=== PATIENT | female | born 1930 | race Caucasian/White ===

== ENCOUNTER → 2017-02-02 | Outpatient (CLI) | payer OTHER ==
[~2017-02-02] MED LIST: AMLO10TA2 PO; ATOR40TA PO; FURO20TA3 PO; HYDR25TA6 PO; LEVO100T5 PO; LOSA100T6 PO; POTA20TA89 PO; SERT100T5 PO
== END | disposition home or self-care (01) ==
LOC: CFH 13:43
PROVIDERS: ATTEND Internal Medicine Nephrology
DX: I12.9 Hypertensive chronic kidney disease with stage 1 through stage 4 chronic kidney disease, or unspecified chronic kidney disease (principal); N18.4 Chronic kidney disease, stage 4 (severe); E78.5 Hyperlipidemia, unspecified; M79.7 Fibromyalgia; G89.4 Chronic pain syndrome; E03.9 Hypothyroidism, unspecified; Z86.39 Personal history of other endocrine, nutritional and metabolic disease; Z85.038 Personal history of other malignant neoplasm of large intestine
CPT/HCPCS: 76770

== ENCOUNTER 2017-11-27 23:52 | Inpatient (IN) | payer OTHER ==
[~2017-11-27] VITALS: Ht 160 cm; Wt 102.3 kg
[2017-11-28] MEDS ORDERED: LIDOCAINE-MPF 1%, 5ML ONE (00:15)
[2017-11-28] MEDS ORDERED: POLYETHYLENE GLYCOL 17 GM PACKET PO PRN (00:30)
[2017-11-28] MEDS ORDERED: ONDANSETRON ODT 4 MG PO PRN (00:30)
[2017-11-28] MEDS ORDERED: BISACODYL 10 MG SUPP PR PRN (00:30)
[2017-11-28] MEDS ORDERED: LIDOCAINE-MPF 1%, 5ML INFIL ONE (00:30)
[2017-11-28 00:51] LABS: BASOPHILS # (AUTO) 0.03 x10^3/uL (0-0.1); BASOPHILS % (AUTO) 0 % (0-1); EOSINOPHILS # (AUTO) 0.09 x10^3/uL (0-0.4); EOSINOPHILS % (AUTO) 1 % (1-7); LYMPHOCYTES # (AUTO) 1.19 x10^3/uL (1-3.4); LYMPHOCYTES % (AUTO) 13 % (22-44); MD NO; MEAN CORPUSCULAR HEMOGLOBIN 32.5 pg (27.0-34.8); MEAN CORPUSCULAR HGB CONC 34.1 g/dL (32.4-35.8); MEAN CORPUSCULAR VOLUME 95.2 fL (80-100); MEAN PLATELET VOLUME 8.7 fL (7.4-10.4); MONOCYTES % (AUTO) 6 % (2-9); NEUTROPHILS # (AUTO) 7.29 x10^3/uL (1.8-6.8); NEUTROPHILS % (AUTO) 80 % (42-75); PLATELET COUNT 201 x10^3/uL (130-400); RED BLOOD COUNT 4.68 x10^6/uL (3.82-5.3); RED CELL DISTRIBUTION WIDTH 14.7 % (9.6-15.2)
[2017-11-28 01:00] LABS: INTERNATIONAL NORMALIZED RATIO 1.01 (0.93-1.1); PROTHROMBIN TIME 10.4 Seconds (9.6-11.5)
[2017-11-28 01:02] LABS: ALANINE AMINOTRANSFERASE 20 U/L (12-78); ALBUMIN 3.5 g/dL (3.4-5.0); ANION GAP 12 mmol/L (5-15); CALCIUM 8.4 mg/dL (8.5-10.1); CHLORIDE 102 mmol/L (98-107); CREATININE 2.13 mg/dL (0.55-1.02)
[2017-11-28 01:08] LABS: ALKALINE PHOSPHATASE 75 U/L (45-117); BILIRUBIN,TOTAL 0.4 mg/dL (0.2-1.0); TOTAL PROTEIN 7.6 g/dL (6.4-8.2)
[2017-11-28] MEDS ORDERED: L.E.T SOLUTION TP ONE ×2 (01:17→01:30)
[2017-11-28 01:20] LABS: TROPONIN I < 0.015 ng/mL (0.000-0.045)
[2017-11-28] MEDS ORDERED: MORPHINE SULFATE 4 MG/ML, 1ML IVPush PRN (02:00)
[2017-11-28] MEDS ORDERED: SODIUM CHLORIDE 0.9% 1,000ML IVBOLUS ONE (02:00)
[2017-11-28] MEDS ORDERED: SODIUM CHLORIDE FLUSH 10ML SYR IVF ONE ×2 (02:00)
[2017-11-28] MEDS ORDERED: MORPHINE SULFATE 4 MG/ML, 1ML ONE (02:07)
[2017-11-28] MEDS ORDERED: ONDANSETRON ODT 4 MG ONE (02:07)
[2017-11-28 03:20] VITALS: BP 129/71
[2017-11-28 03:27] VITALS: BP 129/71
[2017-11-28] MEDS: SODIUM CHLORIDE 0.9% 1,000 ML IV SCH ×2 (04:30→18:37)
[2017-11-28] MEDS: KETOROLAC 30 MG/1 ML IVPush PRN ×2 (05:58→07:27)
[2017-11-28] MEDS ORDERED: KETOROLAC 30 MG/1 ML IVPush SCH (06:00)
[2017-11-28 07:20] LABS: BASOPHILS # (AUTO) 0.02 x10^3/uL (0-0.1); BASOPHILS % (AUTO) 0 % (0-1); EOSINOPHILS # (AUTO) 0.13 x10^3/uL (0-0.4); EOSINOPHILS % (AUTO) 2 % (1-7); LYMPHOCYTES # (AUTO) 1.52 x10^3/uL (1-3.4); LYMPHOCYTES % (AUTO) 18 % (22-44); MD NO; MEAN CORPUSCULAR HEMOGLOBIN 31.9 pg (27.0-34.8); MEAN CORPUSCULAR HGB CONC 33.8 g/dL (32.4-35.8); MEAN CORPUSCULAR VOLUME 94.5 fL (80-100); MEAN PLATELET VOLUME 8.9 fL (7.4-10.4); MONOCYTES # (AUTO) 0.61 x10^3/uL (0.2-0.8); MONOCYTES % (AUTO) 7 % (2-9); NEUTROPHILS # (AUTO) 6.07 x10^3/uL (1.8-6.8); NEUTROPHILS % (AUTO) 73 % (42-75); PLATELET COUNT 192 x10^3/uL (130-400); RED BLOOD COUNT 4.62 x10^6/uL (3.82-5.3); RED CELL DISTRIBUTION WIDTH 14.8 % (9.6-15.2)
[2017-11-28 07:28] LABS: ALANINE AMINOTRANSFERASE 21 U/L (12-78); ALBUMIN 3.5 g/dL (3.4-5.0); ANION GAP 10 mmol/L (5-15); CALCIUM 8.6 mg/dL (8.5-10.1); CHLORIDE 102 mmol/L (98-107); CREATININE 1.84 mg/dL (0.55-1.02)
[2017-11-28 07:32] LABS: ALKALINE PHOSPHATASE 69 U/L (45-117); BILIRUBIN,TOTAL 0.5 mg/dL (0.2-1.0); TOTAL PROTEIN 7.6 g/dL (6.4-8.2); TROPONIN I < 0.015 ng/mL (0.000-0.045)
[2017-11-28 08:21] VITALS: BP 98/57
[2017-11-28] MEDS: HYDROCHLOROTHIAZIDE 25 MG TABLET PO SCH (09:00)
[2017-11-28] MEDS ORDERED: LOSARTAN 50MG TABLET PO SCH (09:00)
[2017-11-28] MEDS: AMLODIPINE 5 MG TABLET PO SCH (09:00)
[2017-11-28] MEDS: FUROSEMIDE 20 MG TABLET PO SCH ×2 (09:00→20:40)
[2017-11-28 12:06] LABS: TROPONIN I < 0.015 ng/mL (0.000-0.045)
[2017-11-28 13:16] VITALS: BP 118/68
[2017-11-28] MEDS: SENNA/DOCUSATE TABLET PO SCH (13:24)
[2017-11-28] MEDS: LEVOTHYROXINE 100 MCG TABLET PO SCH (13:24)
[2017-11-28] MEDS: POTASSIUM CHLORIDE 20 MEQ TAB.ER.PRT PO SCH (13:24)
[2017-11-28] MEDS: SERTRALINE 50MG TABLET PO SCH (13:25)
[2017-11-28 20:24] VITALS: BP 128/68
[2017-11-29] VITALS (7 sets, daily range): BP systolic 108–145; BP diastolic 59–81
[2017-11-29] MEDS: ACETAMINOPHEN 325 MG TABLET PO PRN ×3 (02:16→18:22)
[2017-11-29 05:53] LABS: ALBUMIN 2.8 g/dL (3.4-5.0); ANION GAP 7 mmol/L (5-15); BASOPHILS # (AUTO) 0.01 x10^3/uL (0-0.1); BASOPHILS % (AUTO) 0 % (0-1); CALCIUM 7.6 mg/dL (8.5-10.1); CHLORIDE 106 mmol/L (98-107); EOSINOPHILS # (AUTO) 0.27 x10^3/uL (0-0.4); EOSINOPHILS % (AUTO) 3 % (1-7); LYMPHOCYTES # (AUTO) 1.39 x10^3/uL (1-3.4); LYMPHOCYTES % (AUTO) 14 % (22-44); MD NO; MEAN CORPUSCULAR HEMOGLOBIN 31.9 pg (27.0-34.8); MEAN CORPUSCULAR HGB CONC 33.5 g/dL (32.4-35.8); MEAN CORPUSCULAR VOLUME 95.4 fL (80-100); MEAN PLATELET VOLUME 9.3 fL (7.4-10.4); MONOCYTES # (AUTO) 0.76 x10^3/uL (0.2-0.8); MONOCYTES % (AUTO) 7 % (2-9); NEUTROPHILS # (AUTO) 7.83 x10^3/uL (1.8-6.8); NEUTROPHILS % (AUTO) 76 % (42-75); PLATELET COUNT 158 x10^3/uL (130-400); RED BLOOD COUNT 4.19 x10^6/uL (3.82-5.3); RED CELL DISTRIBUTION WIDTH 14.9 % (9.6-15.2)
[2017-11-29 05:56] LABS: ALANINE AMINOTRANSFERASE 19 U/L (12-78); ALKALINE PHOSPHATASE 55 U/L (45-117); BILIRUBIN,TOTAL 0.9 mg/dL (0.2-1.0); CREATININE 1.33 mg/dL (0.55-1.02); TOTAL PROTEIN 6.4 g/dL (6.4-8.2)
[2017-11-29] MEDS: HYDROCHLOROTHIAZIDE 25 MG TABLET PO SCH (09:26)
[2017-11-29] MEDS: POTASSIUM CHLORIDE 20 MEQ TAB.ER.PRT PO SCH (09:26)
[2017-11-29] MEDS: AMLODIPINE 5 MG TABLET PO SCH (09:27)
[2017-11-29] MEDS: SENNA/DOCUSATE TABLET PO SCH (09:27)
[2017-11-29] MEDS: SERTRALINE 50MG TABLET PO SCH (09:28)
[2017-11-29] MEDS: LEVOTHYROXINE 100 MCG TABLET PO SCH (09:29)
[2017-11-29] MEDS: FUROSEMIDE 20 MG TABLET PO SCH ×2 (09:29→21:46)
[2017-11-29] MEDS: SODIUM CHLORIDE 0.9% 1,000 ML IV SCH ×2 (09:30→21:45)
[2017-11-30 01:14] VITALS: BP 163/81
[2017-11-30] MEDS: ACETAMINOPHEN 325 MG TABLET PO PRN ×3 (01:32→10:09)
[2017-11-30 07:29] VITALS: BP 148/76
[2017-11-30] MEDS: SENNA/DOCUSATE TABLET PO SCH (08:57)
[2017-11-30] MEDS: LEVOTHYROXINE 100 MCG TABLET PO SCH (08:57)
[2017-11-30] MEDS: AMLODIPINE 5 MG TABLET PO SCH (08:57)
[2017-11-30] MEDS: POTASSIUM CHLORIDE 20 MEQ TAB.ER.PRT PO SCH (08:58)
[2017-11-30] MEDS: FUROSEMIDE 20 MG TABLET PO SCH (08:58)
[2017-11-30] MEDS: SERTRALINE 50MG TABLET PO SCH (08:58)
[2017-11-30] MEDS: HYDROCHLOROTHIAZIDE 25 MG TABLET PO SCH (08:58)
[2017-11-30] MEDS: SODIUM CHLORIDE 0.9% 1,000 ML IV SCH (12:02)
[2017-11-30 12:20] LABS: ANION GAP 7 mmol/L (5-15); CALCIUM 8.5 mg/dL (8.5-10.1); CHLORIDE 104 mmol/L (98-107); CREATININE 0.97 mg/dL (0.55-1.02)
[2017-11-30 13:24] VITALS: BP 145/76
== END 2017-11-30 16:17 | disposition home health service (06) | DRG 896 ==
LOC: ED 23:59 → EDIP 11-28 02:54 → 4EST 11-28 03:02 → DCLOUNGE 11-30 16:00
PROVIDERS: ADMIT Hospitalist; ATTEND Hospitalist
PROC: 0HQ1XZZ Repair Face Skin, External Approach (ICD-10-PCS; principal; 2017-11-28)
DX: F10.129 Alcohol abuse with intoxication, unspecified (principal); J96.01 Acute respiratory failure with hypoxia; S12.100A Unspecified displaced fracture of second cervical vertebra, initial encounter for closed fracture; N17.9 Acute kidney failure, unspecified; E44.0 Moderate protein-calorie malnutrition; S22.040A Wedge compression fracture of fourth thoracic vertebra, initial encounter for closed fracture; Z68.41 Body mass index [BMI] 40.0-44.9, adult; S06.0X9A Concussion with loss of consciousness of unspecified duration, initial encounter; S22.050A Wedge compression fracture of T5-T6 vertebra, initial encounter for closed fracture; E11.22 Type 2 diabetes mellitus with diabetic chronic kidney disease; Z99.81 Dependence on supplemental oxygen; S01.81XA Laceration without foreign body of other part of head, initial encounter; W18.39XA Other fall on same level, initial encounter; Z88.0 Allergy status to penicillin; E03.9 Hypothyroidism, unspecified; E66.9 Obesity, unspecified; I12.9 Hypertensive chronic kidney disease with stage 1 through stage 4 chronic kidney disease, or unspecified chronic kidney disease; I25.10 Atherosclerotic heart disease of native coronary artery without angina pectoris; I44.4 Left anterior fascicular block; M19.019 Primary osteoarthritis, unspecified shoulder; M48.061 Spinal stenosis, lumbar region without neurogenic claudication; G89.11 Acute pain due to trauma; I35.8 Other nonrheumatic aortic valve disorders; N18.3 Chronic kidney disease, stage 3 (moderate); Z66 Do not resuscitate; Z85.038 Personal history of other malignant neoplasm of large intestine; Z86.73 Personal history of transient ischemic attack (TIA), and cerebral infarction without residual deficits; Z90.49 Acquired absence of other specified parts of digestive tract; Z90.710 Acquired absence of both cervix and uterus; Z96.611 Presence of right artificial shoulder joint; Y90.5 Blood alcohol level of 100-119 mg/100 ml; Y93.89 Activity, other specified; Y92.89 Other specified places as the place of occurrence of the external cause; Y99.8 Other external cause status
CPT/HCPCS: 12011; 36415; 70450; 71045; 72125; 72128; 72131; 74150; 76770; 80048; 80053; 80307; 82550; 83880; 84484; 85025; 85610; 85730; 93005; 93306; 96361; 96374; J1885; Q0162; J7030

== ENCOUNTER 2019-01-23 12:20 | Inpatient (IN) | payer MEDICARE, OTHER ==
[~2019-01-23] VITALS: Ht 160 cm; Wt 80.3 kg
[~2019-01-23 12:20] MED LIST changes: -AMLO10TA2 PO; +AMLO10TA8 PO; +LOSA100T14 PO; -LOSA100T6 PO; +SERT100T32 PO; -SERT100T5 PO
--- NOTE | 2019-01-23 12:53 | NUR ---
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 Patient receiving assistance from [employer] with changing into gown.
--- NOTE | 2019-01-23 13:13 | NUR ---
PT STATES WHEN SHE GOT OUT OF BED TODAY AT 0600 SHE PASSED OUT. RIGHT SHOULDER PAIN AND HEAD PAIN. PT STATES SHE MAY HAVE HIT HER HEAD ON BED FRAME. PT ADDITIONALLY STATES THAT SHE HAS HAD A ANDERSON FOR SEVERAL DAYS
[2019-01-23 13:22] LABS: ALBUMIN 3.9 g/dL (3.4-5.0); ANION GAP 5 mmol/L (5-15); CALCIUM 9.1 mg/dL (8.5-10.1); CHLORIDE 99 mmol/L (98-107)
[2019-01-23 13:25] LABS: TROPONIN I < 0.015 ng/mL (0.000-0.045)
[2019-01-23 13:30] LABS: BASOPHILS # (AUTO) 0.02 x10^3/uL (0-0.1); BASOPHILS % (AUTO) 0 % (0-1); EOSINOPHILS # (AUTO) 0.07 x10^3/uL (0-0.4); EOSINOPHILS % (AUTO) 1 % (1-7); LYMPHOCYTES # (AUTO) 1.06 x10^3/uL (1-3.4); LYMPHOCYTES % (AUTO) 13 % (22-44); MD NO; MEAN CORPUSCULAR HEMOGLOBIN 32.9 pg (27.0-34.8); MEAN CORPUSCULAR HGB CONC 33.7 g/dL (32.4-35.8); MEAN CORPUSCULAR VOLUME 97.8 fL (80-100); MEAN PLATELET VOLUME 9.2 fL (7.4-10.4); MONOCYTES # (AUTO) 0.35 x10^3/uL (0.2-0.8); MONOCYTES % (AUTO) 4 % (2-9); NEUTROPHILS # (AUTO) 6.57 x10^3/uL (1.8-6.8); NEUTROPHILS % (AUTO) 82 % (42-75); PLATELET COUNT 229 x10^3/uL (130-400); RED BLOOD COUNT 4.29 x10^6/uL (3.82-5.3); RED CELL DISTRIBUTION WIDTH 13.5 % (9.6-15.2)
[2019-01-23 13:35] LABS: INTERNATIONAL NORMALIZED RATIO 1.03 (0.93-1.1); PROTHROMBIN TIME 10.8 Seconds (9.6-11.5)
--- NOTE | 2019-01-23 13:38 | NUR ---
AFTER BEDSIDE XRAY PT TO CT
[2019-01-23] MEDS ORDERED: SODIUM CHLORIDE 0.9% 1,000 ML IV ONE (13:53)
[2019-01-23] MEDS ORDERED: HYDROcodone/APAP 5/325 TABLET PO ONE (14:00)
[2019-01-23] MEDS ORDERED: SODIUM CHLORIDE FLUSH 10ML SYR IVF ONE (14:00)
--- NOTE | 2019-01-23 14:30 | NUR ---
RIGHT ARM PLACED IN SLING. PT AWARE OF INTENT TO ADMIT. MAXIM RN TO ATTEMPT IV START
[2019-01-23] MEDS ORDERED: HYDROcodone/APAP 5/325 TABLET ONE (14:57)
[2019-01-23] MEDS ORDERED: ONDANSETRON ODT 4 MG PO PRN (15:30)
[2019-01-23] MEDS ORDERED: ONDANSETRON 2MG/ML, 2ML IVPush PRN (15:30)
[2019-01-23] MEDS ORDERED: POLYETHYLENE GLYCOL 17 GM PACKET PO PRN (15:30)
[2019-01-23] MEDS ORDERED: LABETALOL 5MG/ML, 20ML IVPush PRN (15:30)
--- NOTE | 2019-01-23 15:35 | NUR ---
REPORT TO MORAIMA ROMAN. PT TO BE TRANSFERED TO FLOOR
[2019-01-23 15:41] LABS: FREE T4 (FREE THYROXINE) 1.06 ng/dL (0.76-1.46)
[2019-01-23 16:30] VITALS: BP 124/71
[2019-01-23 16:34] VITALS: BP 116/69
[2019-01-23 16:36] VITALS: BP 94/55
[2019-01-23 20:15] VITALS: BP 118/65
[2019-01-23 20:18] VITALS: BP 119/69
[2019-01-23 20:21] VITALS: BP 112/67
[2019-01-23] MEDS: HEPARIN 5,000 UNITS/ML, 1ML SQ SCH (20:42)
[2019-01-23] MEDS: ACETAMINOPHEN 325 MG TABLET PO PRN (21:19)
[2019-01-23] MEDS: SODIUM CHLORIDE 0.9% 1,000 ML IV SCH (22:59)
[2019-01-24 02:29] VITALS: BP 140/75
[2019-01-24] MEDS: HEPARIN 5,000 UNITS/ML, 1ML SQ SCH ×3 (04:19→20:38)
[2019-01-24] MEDS: LEVOTHYROXINE 100 MCG TABLET PO SCH (05:32)
[2019-01-24 06:20] LABS: BASOPHILS # (AUTO) 0.02 x10^3/uL (0-0.1); BASOPHILS % (AUTO) 0 % (0-1); EOSINOPHILS # (AUTO) 0.12 x10^3/uL (0-0.4); EOSINOPHILS % (AUTO) 2 % (1-7); LYMPHOCYTES # (AUTO) 1.27 x10^3/uL (1-3.4); LYMPHOCYTES % (AUTO) 23 % (22-44); MD NO; MEAN CORPUSCULAR HEMOGLOBIN 32.9 pg (27.0-34.8); MEAN CORPUSCULAR HGB CONC 33.5 g/dL (32.4-35.8); MEAN CORPUSCULAR VOLUME 98.4 fL (80-100); MONOCYTES # (AUTO) 0.46 x10^3/uL (0.2-0.8); MONOCYTES % (AUTO) 8 % (2-9); NEUTROPHILS % (AUTO) 66 % (42-75); PLATELET COUNT 180 x10^3/uL (130-400); RED BLOOD COUNT 3.56 x10^6/uL (3.82-5.3); RED CELL DISTRIBUTION WIDTH 13.8 % (9.6-15.2)
[2019-01-24 06:26] LABS: CHLORIDE 105 mmol/L (98-107)
[2019-01-24 06:43] LABS: ALANINE AMINOTRANSFERASE 11 U/L (12-78); ALBUMIN 2.9 g/dL (3.4-5.0); ALKALINE PHOSPHATASE 65 U/L (45-117); ANION GAP 5 mmol/L (5-15); BILIRUBIN,TOTAL 0.4 mg/dL (0.2-1.0); CALCIUM 8.1 mg/dL (8.5-10.1); CREATININE 1.64 mg/dL (0.55-1.02); TOTAL PROTEIN 6.7 g/dL (6.4-8.2)
[2019-01-24 06:47] VITALS: BP 147/87
[2019-01-24] MEDS: SERTRALINE 100MG TABLET PO SCH (09:12)
[2019-01-24] MEDS: SENNA/DOCUSATE TABLET PO SCH (09:12)
[2019-01-24] MEDS: ACETAMINOPHEN 325 MG TABLET PO PRN ×2 (09:12→22:46)
[2019-01-24] MEDS: SODIUM CHLORIDE 0.9% 1,000 ML IV SCH ×2 (09:13→20:38)
[2019-01-24 15:57] VITALS: BP 141/78
[2019-01-24 20:35] VITALS: BP 126/70
[2019-01-24 21:14] LABS: CREATININE,URINE RANDOM 62.6 mg/dL
[2019-01-25 02:28] VITALS: BP 158/71
[2019-01-25] MEDS: SODIUM CHLORIDE 0.9% 1,000 ML IV SCH ×3 (03:42→20:41)
[2019-01-25] MEDS: HEPARIN 5,000 UNITS/ML, 1ML SQ SCH ×3 (03:43→20:39)
[2019-01-25 05:20] LABS: BASOPHILS # (AUTO) 0.05 x10^3/uL (0-0.1); BASOPHILS % (AUTO) 1 % (0-1); EOSINOPHILS # (AUTO) 0.18 x10^3/uL (0-0.4); EOSINOPHILS % (AUTO) 3 % (1-7); LYMPHOCYTES # (AUTO) 1.39 x10^3/uL (1-3.4); LYMPHOCYTES % (AUTO) 26 % (22-44); MD NO; MEAN CORPUSCULAR HEMOGLOBIN 31.9 pg (27.0-34.8); MEAN CORPUSCULAR HGB CONC 32.7 g/dL (32.4-35.8); MEAN CORPUSCULAR VOLUME 97.5 fL (80-100); MEAN PLATELET VOLUME 8.3 fL (7.4-10.4); MONOCYTES # (AUTO) 0.42 x10^3/uL (0.2-0.8); MONOCYTES % (AUTO) 8 % (2-9); NEUTROPHILS # (AUTO) 3.23 x10^3/uL (1.8-6.8); NEUTROPHILS % (AUTO) 61 % (42-75); PLATELET COUNT 181 x10^3/uL (130-400); RED BLOOD COUNT 3.49 x10^6/uL (3.82-5.3); RED CELL DISTRIBUTION WIDTH 13.3 % (9.6-15.2)
[2019-01-25 05:29] LABS: ALBUMIN 2.7 g/dL (3.4-5.0); ANION GAP 7 mmol/L (5-15); CALCIUM 7.8 mg/dL (8.5-10.1); CHLORIDE 109 mmol/L (98-107); CREATININE 1.46 mg/dL (0.55-1.02)
[2019-01-25] MEDS: LEVOTHYROXINE 100 MCG TABLET PO SCH (06:26)
[2019-01-25 07:23] VITALS: BP 156/68
[2019-01-25] MEDS: SENNA/DOCUSATE TABLET PO SCH (09:25)
[2019-01-25] MEDS: SERTRALINE 100MG TABLET PO SCH (09:25)
[2019-01-25] MEDS: ACETAMINOPHEN 325 MG TABLET PO PRN ×2 (09:31→17:07)
[2019-01-25 13:10] VITALS: BP 134/78
[2019-01-25 18:37] VITALS: BP 128/77
[2019-01-25 20:49] LABS: MICROSCOPIC AUTO
[2019-01-25 20:50] LABS: CULTURE INDICATED? YES
[2019-01-26 01:19] VITALS: BP 159/66
[2019-01-26 03:04] LABS: MICROSCOPIC AUTO
[2019-01-26 03:07] LABS: CULTURE INDICATED? YES
[2019-01-26] MEDS: SODIUM CHLORIDE 0.9% 1,000 ML IV SCH ×3 (03:41→19:52)
[2019-01-26] MEDS: HEPARIN 5,000 UNITS/ML, 1ML SQ SCH ×3 (03:41→19:56)
[2019-01-26 05:22] LABS: BASOPHILS # (AUTO) 0.01 x10^3/uL (0-0.1); BASOPHILS % (AUTO) 0 % (0-1); EOSINOPHILS # (AUTO) 0.18 x10^3/uL (0-0.4); EOSINOPHILS % (AUTO) 3 % (1-7); LYMPHOCYTES # (AUTO) 1.29 x10^3/uL (1-3.4); LYMPHOCYTES % (AUTO) 23 % (22-44); MD NO; MEAN CORPUSCULAR HEMOGLOBIN 33.2 pg (27.0-34.8); MEAN CORPUSCULAR HGB CONC 33.6 g/dL (32.4-35.8); MEAN CORPUSCULAR VOLUME 98.7 fL (80-100); MEAN PLATELET VOLUME 8.5 fL (7.4-10.4); MONOCYTES % (AUTO) 7 % (2-9); NEUTROPHILS # (AUTO) 3.71 x10^3/uL (1.8-6.8); NEUTROPHILS % (AUTO) 66 % (42-75); PLATELET COUNT 180 x10^3/uL (130-400); RED BLOOD COUNT 3.37 x10^6/uL (3.82-5.3); RED CELL DISTRIBUTION WIDTH 13.3 % (9.6-15.2)
[2019-01-26 05:34] LABS: ALBUMIN 2.5 g/dL (3.4-5.0); CALCIUM 8.1 mg/dL (8.5-10.1); CHLORIDE 115 mmol/L (98-107)
[2019-01-26 05:40] LABS: ALANINE AMINOTRANSFERASE 9 U/L (12-78); ALKALINE PHOSPHATASE 59 U/L (45-117); ANION GAP 4 mmol/L (5-15); BILIRUBIN,TOTAL 0.6 mg/dL (0.2-1.0); TOTAL PROTEIN 6.1 g/dL (6.4-8.2)
[2019-01-26] MEDS: ACETAMINOPHEN 325 MG TABLET PO PRN ×3 (06:09→19:51)
[2019-01-26] MEDS: LEVOTHYROXINE 100 MCG TABLET PO SCH (06:09)
[2019-01-26 06:54] VITALS: BP 152/63
[2019-01-26] MEDS: SENNA/DOCUSATE TABLET PO SCH ×2 (09:00→09:14)
[2019-01-26] MEDS: SERTRALINE 100MG TABLET PO SCH (09:14)
[2019-01-26 13:11] VITALS: BP 149/73
[2019-01-26 19:08] VITALS: BP 150/78
[2019-01-26] MEDS: CEFTRIAXONE PMX 1GM/50ML 50 ML IV SCH (22:22)
[2019-01-27 00:48] VITALS: BP 159/67
[2019-01-27] MEDS: HEPARIN 5,000 UNITS/ML, 1ML SQ SCH ×3 (04:51→21:18)
[2019-01-27] MEDS: SODIUM CHLORIDE 0.9% 1,000 ML IV SCH (04:51)
[2019-01-27 06:14] LABS: ALBUMIN 2.5 g/dL (3.4-5.0); ANION GAP 7 mmol/L (5-15); CALCIUM 8.2 mg/dL (8.5-10.1); CHLORIDE 114 mmol/L (98-107); CREATININE 1.31 mg/dL (0.55-1.02)
[2019-01-27] MEDS: LEVOTHYROXINE 100 MCG TABLET PO SCH (06:35)
[2019-01-27 06:36] VITALS: BP 151/82
[2019-01-27] MEDS: SENNA/DOCUSATE TABLET PO SCH (09:40)
[2019-01-27] MEDS: SERTRALINE 100MG TABLET PO SCH (09:40)
[2019-01-27] MEDS: ACETAMINOPHEN 325 MG TABLET PO PRN ×3 (09:48→23:28)
[2019-01-27 13:43] VITALS: BP 148/78
[2019-01-27] MEDS: FLUTICASONE NASAL SPRAY 16GM NAS SCH (17:19)
[2019-01-27] MEDS: CEFTRIAXONE PMX 1GM/50ML 50 ML IV SCH (21:18)
[2019-01-27 21:20] VITALS: BP 164/75
[2019-01-28 03:58] VITALS: BP 150/75
[2019-01-28 05:25] LABS: ALBUMIN 2.7 g/dL (3.4-5.0); ANION GAP 5 mmol/L (5-15); CALCIUM 8.1 mg/dL (8.5-10.1); CHLORIDE 114 mmol/L (98-107); CREATININE 1.39 mg/dL (0.55-1.02)
[2019-01-28] MEDS: HEPARIN 5,000 UNITS/ML, 1ML SQ SCH ×3 (05:47→20:59)
[2019-01-28] MEDS: LEVOTHYROXINE 100 MCG TABLET PO SCH (05:47)
[2019-01-28 07:30] VITALS: BP 156/55
[2019-01-28] MEDS: SERTRALINE 100MG TABLET PO SCH (08:30)
[2019-01-28] MEDS: SENNA/DOCUSATE TABLET PO SCH (08:30)
[2019-01-28] MEDS: ACETAMINOPHEN 325 MG TABLET PO PRN ×2 (08:40→19:47)
[2019-01-28] MEDS: FLUTICASONE NASAL SPRAY 16GM NAS SCH (08:40)
[2019-01-28 13:40] VITALS: BP 147/72
[2019-01-28 19:47] VITALS: BP 168/72
[2019-01-28] MEDS: CEFTRIAXONE PMX 1GM/50ML 50 ML IV SCH (20:58)
[2019-01-29 01:32] VITALS: BP 168/73
[2019-01-29] MEDS: LEVOTHYROXINE 100 MCG TABLET PO SCH (05:11)
[2019-01-29] MEDS: HEPARIN 5,000 UNITS/ML, 1ML SQ SCH ×3 (05:13→22:28)
[2019-01-29 07:20] VITALS: BP 152/77
[2019-01-29] MEDS: SENNA/DOCUSATE TABLET PO SCH (10:46)
[2019-01-29] MEDS: SERTRALINE 100MG TABLET PO SCH (10:46)
[2019-01-29] MEDS: FLUTICASONE NASAL SPRAY 16GM NAS SCH (10:46)
[2019-01-29 13:48] VITALS: BP 162/73
[2019-01-29] MEDS ORDERED: PHARMACY MAY ADJ FOR RENAL FX MC PRN (14:00)
[2019-01-29 19:14] VITALS: BP 151/70
[2019-01-29] MEDS: ACETAMINOPHEN 325 MG TABLET PO PRN (20:15)
[2019-01-30 02:25] VITALS: BP 158/73
[2019-01-30 05:27] LABS: BASOPHILS # (AUTO) 0.02 x10^3/uL (0-0.1); BASOPHILS % (AUTO) 0 % (0-1); EOSINOPHILS # (AUTO) 0.27 x10^3/uL (0-0.4); EOSINOPHILS % (AUTO) 5 % (1-7); LYMPHOCYTES # (AUTO) 1.02 x10^3/uL (1-3.4); LYMPHOCYTES % (AUTO) 21 % (22-44); MD NO; MEAN CORPUSCULAR HEMOGLOBIN 32.1 pg (27.0-34.8); MEAN CORPUSCULAR HGB CONC 32.8 g/dL (32.4-35.8); MEAN CORPUSCULAR VOLUME 97.9 fL (80-100); MEAN PLATELET VOLUME 8.4 fL (7.4-10.4); MONOCYTES # (AUTO) 0.38 x10^3/uL (0.2-0.8); MONOCYTES % (AUTO) 8 % (2-9); NEUTROPHILS # (AUTO) 3.29 x10^3/uL (1.8-6.8); NEUTROPHILS % (AUTO) 66 % (42-75); PLATELET COUNT 172 x10^3/uL (130-400); RED BLOOD COUNT 3.61 x10^6/uL (3.82-5.3); RED CELL DISTRIBUTION WIDTH 13.7 % (9.6-15.2)
[2019-01-30 05:39] LABS: ANION GAP 7 mmol/L (5-15); CALCIUM 8.6 mg/dL (8.5-10.1); CHLORIDE 112 mmol/L (98-107); CREATININE 1.38 mg/dL (0.55-1.02)
[2019-01-30] MEDS: LEVOTHYROXINE 100 MCG TABLET PO SCH (05:53)
[2019-01-30] MEDS: HEPARIN 5,000 UNITS/ML, 1ML SQ SCH ×3 (05:53→21:17)
[2019-01-30 07:35] VITALS: BP 149/71
[2019-01-30] MEDS: CEFDINIR 300 MG CAPSULE PO SCH ×2 (08:28→21:17)
[2019-01-30] MEDS: FLUTICASONE NASAL SPRAY 16GM NAS SCH (08:28)
[2019-01-30] MEDS: SERTRALINE 100MG TABLET PO SCH (08:28)
[2019-01-30] MEDS: SENNA/DOCUSATE TABLET PO SCH (08:29)
[2019-01-30 14:00] VITALS: BP 137/76
[2019-01-30 20:16] VITALS: BP 130/60
[2019-01-31 02:28] VITALS: BP 160/78
[2019-01-31 05:33] LABS: BASOPHILS # (AUTO) 0.02 x10^3/uL (0-0.1); BASOPHILS % (AUTO) 0 % (0-1); EOSINOPHILS # (AUTO) 0.29 x10^3/uL (0-0.4); EOSINOPHILS % (AUTO) 6 % (1-7); LYMPHOCYTES # (AUTO) 1.23 x10^3/uL (1-3.4); LYMPHOCYTES % (AUTO) 25 % (22-44); MD NO; MEAN CORPUSCULAR HGB CONC 33.4 g/dL (32.4-35.8); MEAN CORPUSCULAR VOLUME 98.8 fL (80-100); MEAN PLATELET VOLUME 8.5 fL (7.4-10.4); MONOCYTES % (AUTO) 8 % (2-9); NEUTROPHILS # (AUTO) 3.05 x10^3/uL (1.8-6.8); NEUTROPHILS % (AUTO) 61 % (42-75); PLATELET COUNT 189 x10^3/uL (130-400); RED BLOOD COUNT 3.64 x10^6/uL (3.82-5.3); RED CELL DISTRIBUTION WIDTH 13.7 % (9.6-15.2)
[2019-01-31 05:41] LABS: CHLORIDE 110 mmol/L (98-107)
[2019-01-31] MEDS: LEVOTHYROXINE 100 MCG TABLET PO SCH (05:43)
[2019-01-31] MEDS: HEPARIN 5,000 UNITS/ML, 1ML SQ SCH ×3 (05:44→22:39)
[2019-01-31 05:46] LABS: ANION GAP 7 mmol/L (5-15); CALCIUM 8.5 mg/dL (8.5-10.1); CREATININE 1.43 mg/dL (0.55-1.02)
[2019-01-31 07:16] VITALS: BP 145/71
[2019-01-31] MEDS: SENNA/DOCUSATE TABLET PO SCH (09:00)
[2019-01-31] MEDS: CEFDINIR 300 MG CAPSULE PO SCH (09:09)
[2019-01-31] MEDS: SERTRALINE 100MG TABLET PO SCH (09:10)
[2019-01-31] MEDS: FLUTICASONE NASAL SPRAY 16GM NAS SCH (09:10)
[2019-01-31 13:45] VITALS: BP 136/63
[2019-01-31 20:58] VITALS: BP 183/78
[2019-01-31 22:21] VITALS: BP 155/72
[2019-01-31] MEDS: ACETAMINOPHEN 325 MG TABLET PO PRN (22:39)
[2019-02-01 02:12] VITALS: BP 153/65
[2019-02-01 05:23] LABS: BASOPHILS # (AUTO) 0.03 x10^3/uL (0-0.1); BASOPHILS % (AUTO) 1 % (0-1); EOSINOPHILS # (AUTO) 0.24 x10^3/uL (0-0.4); EOSINOPHILS % (AUTO) 5 % (1-7); LYMPHOCYTES # (AUTO) 1.12 x10^3/uL (1-3.4); LYMPHOCYTES % (AUTO) 24 % (22-44); MD NO; MEAN CORPUSCULAR HEMOGLOBIN 33.2 pg (27.0-34.8); MEAN CORPUSCULAR HGB CONC 34.3 g/dL (32.4-35.8); MEAN PLATELET VOLUME 8.4 fL (7.4-10.4); MONOCYTES # (AUTO) 0.39 x10^3/uL (0.2-0.8); MONOCYTES % (AUTO) 8 % (2-9); NEUTROPHILS # (AUTO) 2.98 x10^3/uL (1.8-6.8); NEUTROPHILS % (AUTO) 63 % (42-75); PLATELET COUNT 166 x10^3/uL (130-400); RED BLOOD COUNT 3.56 x10^6/uL (3.82-5.3); RED CELL DISTRIBUTION WIDTH 13.8 % (9.6-15.2)
[2019-02-01 05:32] LABS: ALBUMIN 2.7 g/dL (3.4-5.0); ANION GAP 7 mmol/L (5-15); CALCIUM 8.8 mg/dL (8.5-10.1); CHLORIDE 111 mmol/L (98-107); CREATININE 1.41 mg/dL (0.55-1.02)
[2019-02-01] MEDS: HEPARIN 5,000 UNITS/ML, 1ML SQ SCH ×2 (06:10→13:55)
[2019-02-01] MEDS: LEVOTHYROXINE 100 MCG TABLET PO SCH (06:10)
[2019-02-01 07:10] VITALS: BP 156/64
[2019-02-01] MEDS ORDERED: CEFDINIR 300 MG CAPSULE PO SCH (09:00)
[2019-02-01] MEDS ORDERED: AMLO2.5T5 PO (09:31)
[2019-02-01] MEDS: FLUTICASONE NASAL SPRAY 16GM NAS SCH (09:33)
[2019-02-01] MEDS: SENNA/DOCUSATE TABLET PO SCH (09:33)
[2019-02-01] MEDS: SERTRALINE 100MG TABLET PO SCH (09:33)
[2019-02-01] MEDS: ACETAMINOPHEN 325 MG TABLET PO PRN (09:58)
[2019-02-01] MEDS ORDERED: CEFTRIAXONE PMX 1GM/50ML 50 ML IV SCH (10:00)
[2019-02-01 13:39] VITALS: BP 152/75
== END 2019-02-01 14:56 | DRG 682 ==
LOC: ED 14:02 → EDIP 14:12 → 4EST 16:07
PROVIDERS: ADMIT Internal Medicine; ATTEND Internal Medicine
DX: N17.0 Acute kidney failure with tubular necrosis (principal); E43 Unspecified severe protein-calorie malnutrition; I13.0 Hypertensive heart and chronic kidney disease with heart failure and stage 1 through stage 4 chronic kidney disease, or unspecified chronic kidney disease; E87.1 Hypo-osmolality and hyponatremia; I50.30 Unspecified diastolic (congestive) heart failure; J96.10 Chronic respiratory failure, unspecified whether with hypoxia or hypercapnia; N39.0 Urinary tract infection, site not specified; I95.1 Orthostatic hypotension; G90.8 Other disorders of autonomic nervous system; Z88.0 Allergy status to penicillin; Z68.31 Body mass index [BMI] 31.0-31.9, adult; I25.10 Atherosclerotic heart disease of native coronary artery without angina pectoris; I25.2 Old myocardial infarction; G47.33 Obstructive sleep apnea (adult) (pediatric); M19.90 Unspecified osteoarthritis, unspecified site; N18.3 Chronic kidney disease, stage 3 (moderate); S42.031A Displaced fracture of lateral end of right clavicle, initial encounter for closed fracture; W18.39XA Other fall on same level, initial encounter; Y93.89 Activity, other specified; Y92.89 Other specified places as the place of occurrence of the external cause; Y99.8 Other external cause status; E03.9 Hypothyroidism, unspecified; E78.5 Hyperlipidemia, unspecified; Z86.73 Personal history of transient ischemic attack (TIA), and cerebral infarction without residual deficits; Z80.49 Family history of malignant neoplasm of other genital organs; Z90.5 Acquired absence of kidney; Z90.711 Acquired absence of uterus with remaining cervical stump; Z96.611 Presence of right artificial shoulder joint
CPT/HCPCS: 36415; 70450; 71045; 72125; 80048; 80053; 81001; 82040; 82436; 82570; 83735; 84100; 84133; 84300; 84439; 84443; 84484; 85025; 85610; 87077; 87086; 87186; 93005; 93880; G0378; J0696; J1644; Q0162; J7030